=== PATIENT | male | born 1975 | race Two or more races ===

== ENCOUNTER 2024-04-13 20:13 | Emergency (ER) | payer MEDICAID, SELFPAY ==
[2024-04-13 21:14] VITALS: BP 123/79; PULSE 70; RESP 18; TEMP 37.1; O2SAT 96; BMI 34.9
[2024-04-13] MEDS: KETOROLAC INJ 60 MG/2 ML VIAL IM (21:32)
[2024-04-13] MEDS: AMOXICILLIN/POT CLAV 875 TABLET 1 TAB PO (21:32)
--- NOTE | 2024-04-13 21:42 | PD.EDDENTL ---
ED Dental RME/HPI General Chief complaint: Dental/Oral/Throat Stated complaint: Swollen face/FUNEZ since yesterday Time Seen by Provider: 04/13/24 21:25 Arrival date/time: 04/13/24 20:13 49M with no significant PMH presents to ED with with several days of dental pain and L facial/cheek swelling. Patient is waiting to see specialist. Dentist gave a Z-candida that did nothing. Limitations: no limitations Related Data Previous Rx's ?Medication ?Instructions ?Recorded dicyclomine 20 mg tablet 20 mg PO QID PRN abdominal pain 12/27/18 #14 tabs ondansetron HCl 4 mg tablet 4 mg PO QID PRN nausea and 12/27/18 (Zofran) vomiting #14 tabs pantoprazole 40 mg tablet,delayed 40 mg PO QDAY #20 tabs 12/27/18 release (Protonix) cyclobenzaprine 10 mg tablet 10 mg PO TID #30 tabs 06/07/19 ibuprofen 600 mg tablet 600 mg PO Q6H #30 tabs 06/07/19 amoxicillin 875 mg-potassium 1 tab PO BID 10 days #20 tabs 04/13/24 clavulanate 125 mg tablet naproxen 500 mg tablet 500 mg PO BID PRN pain #30 tabs 04/13/24 Allergies Allergy/AdvReac Type Severity Reaction Status Date / Time shrimp Allergy Intermediate RASH,THROAT Verified 06/07/19 18:47 CLOSES Review of Systems Review of Systems Systems Reviewed: All systems reviewed, normal except as documented Constitutional Constitutional: Reports system reviewed and no additional complaints, except as documented, Denies fever(s) and Denies headache(s) ENT Ears, Nose, Mouth, and Throat: Reports as per HPI, Reports dental pain, Denies disequilibrium and Denies headache(s) Cardiovascular Cardiovascular: Reports system reviewed and no additional complaints, except as documented, Denies chest pain and Denies dyspnea Respiratory Respiratory: Reports system reviewed and no additional complaints, except as documented, Denies cough and Denies dyspnea Gastrointestinal Gastrointestinal: Reports system reviewed and no additional complaints, except as documented, Denies abdominal pain, Denies nausea and Denies vomiting Neurologic Neurologic: Reports system reviewed and no additional complaints, except as documented, Denies confusion, Denies disequilibrium and Denies headache(s) Psychiatric Psychiatric: Denies confusion Past Medical History Past Medical History CARDIAC: Negative Congestive Heart Failure RESPIRATORY: Negative Chronic Obstructive Pulmonary Disease (COPD) GENITOURINARY: Negative Renal Disease ENDOCRINE: Negative Diabetes Mellitus Type 1 or Diabetes Mellitus Type 2 Social History SMOKING STATUS: Former smoker SUBSTANCE USE: does not use ED Exam General Limitations: Present no limitations General appearance: Present alert and in no apparent distress Head Head exam: Present atraumatic Eye Eye exam: Present normal appearance, PERRL and EOMI ENT ENT exam: Present mucous membranes moist and other (L cheek/facial swelling) Expanded ENT Exam Teeth exam: Present gingival swelling Neck Neck exam: Present normal inspection, full ROM and trachea midline Chest Chest inspection: Present normal inspection and symmetric chest wall rise Respiratory Respiratory exam: Present normal lung sounds bilaterally Cardiovascular Cardiovascular exam: Present regular rate, normal rhythm and normal heart sounds Abdominal Exam Abdominal exam: Present soft and normal bowel sounds Extremities Exam Extremities exam: Present normal inspection and full ROM Back Exam Back exam: Present normal inspection and full ROM Neurological Exam Neurological exam: Present alert, oriented X3 and CN II-XII intact Psychiatric Psychiatric exam: Present normal affect and normal mood Skin Skin exam: Present warm, dry, intact and normal color Course Quality Measures none Orders Category Date Time Status Amoxicillin/Pot Clav 875 [Augmentin 875] Med 04/13/24 21:25 Discontinued 1 tab PO X1 ONE Ketorolac Inj [Toradol Inj] Med 04/13/24 21:25 Discontinued 60 mg IM X1 ONE Vital Signs Vital signs: Vital Signs Temperature 98.7 F 04/13/24 21:14 Pulse Rate 70 04/13/24 21:14 Respiratory Rate 18 04/13/24 21:14 Blood Pressure 123/79 04/13/24 21:14 Pulse Oximetry (%) 96 04/13/24 21:14 Oxygen Delivery Method Room Air 04/13/24 21:14 O2 at 96% on RA and WNLs Dental / Oral MDM Narrative MDM Narrative:: 49M with no significant PMH presents to ED with with several days of dental pain and L facial/cheek swelling. Patient is waiting to see specialist. Dentist gave a Z-candida that did nothing. Physical exam reveals gingival swelling and L cheek/facial swelling and tenderness. Patient is afebrile, calm, and alert. Meds and correctional classification counselor given. Patient data External records reviewed:: [facility] previous records Clinical information provided by:: patient Social determinants that could affect healthcare access:: none Patient has the following chronic illnesses:: none How is presenting disease/condition affected by chronic disease/condition?: no chronic disease Evaluation data The following diagnostics were reviewed and interpreted by me:: other (specify) (none) Lab and/or radiology exams considered but not ordered:: not ordered Interpretation Summary: n/a Medications / Prescriptions Medications or Prescriptions considered but not ordered:: ordered Medication administrations:: Medication Administration History Discontinued Medications Amoxicillin/Clavulanate Potassium (Amoxicillin/Pot Clav 875 Tablet) 1 tab PO X1 ONE Stop: 04/13/24 21:26 Last Admin: 04/13/24 21:32 Dose: 1 tab Documented By: Ketorolac Tromethamine (Ketorolac Inj 60 Mg/2 Ml Vial) 60 mg IM X1 ONE Stop: 04/13/24 21:26 Last Admin: 04/13/24 21:32 Dose: 60 mg Documented By: above Consultations Consultation(s) initiated? (list below): No Diagnosis Dental Differential Diagnosis: gingival abscess, dental caries, toothache, dental abscess, fracture of tooth and aphthous ulcer Most likely diagnosis given after review of the tests above:: dental abscess Admission Indicated Admission indicated?: not indicated Admission Request Was there a request for admission?: No Disposition Plan Disposition Plan: Discharge Discharge Attestation Discharge Attestation: The patient and all family members were given an opportunity to ask questions and understood the discharge instructions. Discharge instructions specifically effects, indications for sooner follow up or return to the emergency department, and the expected course of current diagnosis. Patient condition: Stable Discharge Plan Plan Patient Disposition: HOME (Self Care) Disposition Comment: Stable Prescriptions/Referrals Prescriptions/Med Rec: New amoxicillin-pot clavulanate 875-125 mg tablet 1 tab PO BID 10 Days Qty: 20 0RF naproxen 500 mg tablet 500 mg PO BID PRN (Reason: pain) Qty: 30 0RF No Action cyclobenzaprine 10 mg tablet 10 mg PO TID Qty: 30 0RF ibuprofen 600 mg tablet 600 mg PO Q6H Qty: 30 0RF ondansetron HCl [Zofran] 4 mg tablet 4 mg PO QID PRN (Reason: nausea and vomiting) Qty: 14 0RF dicyclomine 20 mg tablet 20 mg PO QID PRN (Reason: abdominal pain) Qty: 14 0RF pantoprazole [Protonix] 40 mg tablet,delayed release (DR/EC) 40 mg PO QDAY Qty: 20 0RF Problem List Clinical Impression: Dental abscess Patient/Caregiver Discharge Instructions Additional Instructions: Please follow-up with PCP within 24-48 hours and return immediately if symptoms worsen. See dentist soon. Print Language: Nigerien Stand Alone Forms: Patient Portal Info Letter PA/PRINTING AND STAMPING SUPERVISOR Supervising Physician PA/PRINTING AND STAMPING SUPERVISOR Supervising Physician: Dr. Dorantes
== END 2024-04-13 21:39 | disposition home or self-care (01) ==
LOC: SERX 22:13
PROVIDERS: Emergency Provider Emergency Medicine
DX: K04.7 Periapical abscess without sinus (principal)
CPT/HCPCS: 96372; 99283; J1885; A9270